=== PATIENT | female | born 1955 | race Caucasian/White ===

== ENCOUNTER 2022-12-06 20:37 | Inpatient (IN) | payer MEDICARE, OTHER ==
[~2022-12-06] VITALS: Ht 152.4 cm; Wt 68.0 kg
--- NOTE | 2022-12-06 20:59 | NUR ---
BLOOD COLLECTED AND SENT TO LAB
[2022-12-06] MEDS ORDERED: IV NS 0.9% 1,000 ML BAG IV ONE (21:00)
--- NOTE | 2022-12-06 21:06 | NUR ---
UPDATED HARDEEP ANDERSON [phone]
[2022-12-06 21:10] LABS: BASOPHILS % (AUTO) 0.4 % (0.0-2.0); EOSINOPHILS % (AUTO) 1.6 % (0.0-6.0); HEMATOCRIT 37 % (33-45); HEMOGLOBIN 12.4 g/dL (11.5-14.8); LYMPHOCYTES # (AUTO) 2.7 K/uL (0.8-4.8); LYMPHOCYTES % (AUTO) 37.6 % (20.0-44.0); MEAN CORPUSCULAR HGB CONC 33 g/dl (31.0-36.0); MEAN CORPUSCULAR VOLUME 90 fL (82-100); MONOCYTES # (AUTO) 0.4 K/uL (0.1-1.30); MONOCYTES % (AUTO) 6.1 % (2.0-12.0); NEUTROPHILS # (AUTO) 3.9 K/uL (1.8-8.9); NEUTROPHILS % (AUTO) 54.3 % (43.0-81.0); PLATELET COUNT (AUTO) 348 K/uL (150-450); RED BLOOD CELL COUNT(AUTO) 4.12 MIL/uL (4.0-5.2); WHITE BLOOD COUNT (AUTO) 7.1 K/uL (4.3-11.0)
[2022-12-06] MEDS ORDERED: ONDANSETRON HCL/PF 4 MG/2 ML VIAL ONE (21:18)
[2022-12-06] MEDS ORDERED: MECLIZINE HCL 25 MG TABLET ONE (21:19)
[2022-12-06 21:22] LABS: CALCIUM, SERUM 9.1 mg/dL (8.5-10.1); CARBON DIOXIDE 25 mmol/L (21-32); CHLORIDE 104 mmol/L (98-107); CREATININE 0.8 mg/dL (0.6-1.3); GLUCOSE 151 mg/dL (74-106); POTASSIUM 3.3 mmol/L (3.5-5.1); SODIUM SERUM 139 mmol/L (136-145); UREA NITROGEN, BLOOD 15 mg/dL (7-18)
--- NOTE | 2022-12-06 21:25 | NUR ---
MEYID SWABBED, SENT TO LAB.
--- NOTE | 2022-12-06 21:27 | NUR ---
PT TAKEN TO CT
[2022-12-06 21:28] LABS: ALANINE AMINOTRANSFERASE 20 U/L (12-78); ALBUMIN 4.1 g/dL (3.4-5.0); ALKALINE PHOSPHATASE 108 U/L (46-116); ASPARTATE AMINOTRANSFERASE 12 U/L (15-37); BILIRUBIN,TOTAL 0.2 mg/dL (0.2-1.0); LIPASE 124 U/L (73-393); TOTAL PROTEIN, SERUM 7.9 g/dL (6.4-8.2)
[2022-12-06] MEDS ORDERED: MECLIZINE HCL 12.5 MG TABLET PO ONE (21:30)
[2022-12-06] MEDS ORDERED: ONDANSETRON HCL/PF 4 MG/2 ML VIAL IV ONE (21:30)
--- NOTE | 2022-12-06 22:35 | NUR ---
DR OBRIEN ON THE PHONE WITH DR JORDAN PARKER, HOSPITALIST
--- NOTE | 2022-12-06 23:02 | NUR ---
REPORT GIVEN TO LAURE BRITT FOR FANY
--- NOTE | 2022-12-06 23:03 | NUR ---
PT ASKED IF SHE TAKES ANY MEDICATION. PT DOES NOT RECALL.
--- NOTE | 2022-12-06 23:31 | NUR ---
RN NOTE PT IS TRANSPORTED FROM ER TO THE UNIT ON A GURNEY. NO ORDERS FOR THE PT YET. NOTIFIED CHARGE NURSE, JUSTYN. LORENZA ALEJANDRA CALLED ER AND WAS NOTIFIED THAT MD ELENA ORTEGA WILL GIVE THE PT ORDER. WAITING FOR ORDERS.
[2022-12-06 23:40] VITALS: BP 141/76
--- NOTE | 2022-12-06 23:40 | NUR ---
RN ADMITTING NOTE PT IS BEING TRANSFERRED FROM ER TO THE UNIT ON THE [facility]. UPON ADMITTING, VITAL SIGNS WERE TAKEN. BP IS 141/76, TEMP IS 97.9, HR IS 58, RR IS 18, O2 SAT IS 99% ON RA. WEIGHT IS 150 LBS. PT IS ALERT AND ORIENTED, AO X 4. SHE IS [place] SPEAKING AND ABLE TO COMMUNICATE WITH SIMPLE [place]. SHE IS ON RA, TOLERATED WELL. NO S/S OF DISTRESS OR SOB. PT HAS IV ACCESS AT HER LEFT AC, #20G. SL. FLUSHED WELL WITH 10 CC OF NS. STILL WAITING FOR MD ORDER FOR ADMITTING THE PT TO TELE OR MED-SURG. ORIENTED THE PT WITH SURROUNDINGS, AND EDUCATED THE PT TO USE THE CALL LIGHT WHEN SHE NEEDS HELP. PT VERBALIZED UNDERSTANDING. SAFETY MEASURES ARE IN PLACED: BED IN LOWEST AND LOCKED POSITION; CALL LIGHT AND TABLE ARE WITHIN REACH; SIDE RAILS UP X 2. WILL CONTINUE MONITORING THE PT AND PROVIDE THE CARE PT NEEDS.
[2022-12-07] VITALS: BP 111/65
--- NOTE | 2022-12-07 01:14 | NUR ---
RN NOTE CHARGE NURSE, JUSTYN, CONTACTED MD JORDAN PARKER AND REMIND HIM THAT THE PT NEEDS ORDER FOR CARE. RECEIVED HIS REPLY "OK".
[2022-12-07] MEDS ORDERED: IV NS 0.9% 1,000 ML IV PRN (01:30)
[2022-12-07] MEDS ORDERED: ONDANSETRON HCL/PF 4 MG/2 ML VIAL IVP PRN (01:30)
[2022-12-07] MEDS ORDERED: Z GUARD REMEDY 4 OZ OINT TP PRN (01:30)
[2022-12-07] MEDS ORDERED: ACETAMINOPHEN 325 MG TABLET PO PRN (01:30)
[2022-12-07] MEDS ORDERED: MECLIZINE HCL 12.5 MG TABLET PO PRN (01:30)
[2022-12-07] MEDS ORDERED: DIAZEPAM 5 MG TABLET PO PRN (01:30)
--- NOTE | 2022-12-07 01:40 | NUR ---
MANUFACTURING ENGINEER AUTOMOTIVE NOTE RECEIVED ORDERS FOR THIS PT. 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 ON THE MONITOR, HER HEART RHYTHM IS SB WITH HR AT 50S. PT IS SLEEPING. NO S/S OF DISTRESS OR DISCOMFORT AT THIS MOMENT.
[2022-12-07 04:00] VITALS: BP 120/60
--- NOTE | 2022-12-07 06:54 | NUR ---
IT CONSULTANT CLOSING NOTE PT IS SLEEPING IN BED, EASILY BEING AROUSED. SHE IS ALERT AND ORIENTED, AO X 4. SHE IS [place] SPEAKING AND ABLE TO COMMUNICATE WITH SIMPLE [place]. SHE IS ON RA, TOLERATED WELL. NO S/S OF DISTRESS OR SOB. PT HAS IV ACCESS AT HER LEFT AC, #20G, INFUSING NS@75 ML/HR. IV SITE IS PATENT AND INTACT. PT DENIES OF HAVING PAIN OR DISCOMFORT DURING THE SHIFT. 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 PT IS ASYMPTOMATIC. SAFETY MEASURES ARE IN PLACED: BED IN LOWEST AND LOCKED POSITION; CALL LIGHT AND TABLE ARE WITHIN REACH; SIDE RAILS UP X 2. WILL ENDORSE NEXT SHIFT NURSE FOR CONTINUING PT CARE.
--- NOTE | 2022-12-07 07:45 | NUR ---
EDGE BANDING OFF BEARER OPENING NOTE RECEIVED PATIENT AWAKE, LYING IN BED. PATIENT IS ON ROOM AIR, NO S/S OF DISTRESS OR SOB, AO X4. PT HAS IV ACCESS AT HER LAC #20G WITH NS AT 75 ML/HR INFUSING WELL. PAINTING DEPARTMENT SUPERVISOR ATTACHED WITH SINUS BRADYCARDIA WITH HR OF 54. BED LOCKED IN THE LOWEST POSITION. CALL LIGHT AND TABLE IN EASY REACH. SIDE RAILS UP X2. BED ALARM ON. WILL CONTINUE TO MONITOR CLOSELY FOR ANY FANY AND ASSIST PATIENT WITH IMMEDIATE NEEDS.
[2022-12-07 08:00] VITALS: BP 126/68
[2022-12-07] MEDS ORDERED: ENOXAPARIN SODIUM 40 MG/0.4 ML DISP.SYRIN SQ SCH (09:00)
[2022-12-07] MEDS ORDERED: MULT-447 PO (10:49)
[2022-12-07] MEDS ORDERED: FOSI40TA5 PO (10:49)
[2022-12-07] MEDS ORDERED: AMLO-212 PO (10:49)
[2022-12-07] MEDS ORDERED: EMPA25TA PO (10:49)
[2022-12-07] MEDS ORDERED: METF-442 PO (10:49)
[2022-12-07] MEDS ORDERED: GEMF600T90 PO (10:49)
[2022-12-07 12:00] VITALS: BP 154/104
--- NOTE | 2022-12-07 15:30 | NUR ---
DIRECTOR OF GROUP SALES NOTE PATIENT DISCHARGE IN STABLE MEDICAL CONDITION. A/O X4. PATIENT WALKED AROUND THE UNIT BEFORE DISCHARGE, DURING AMBULATION PATIENT DENIED DIZZINESS OR ANY DISCOMFORT, PATIENT STATED "I FEEL GOOD". V/S TAKEN AND STABLE. NAME ARM BAND REMOVED. NO IV ACCESS. EXTERNAL FLY FISHING GUIDE REMOVED AND RETURNED TO TELE DESK. SKIN ASSESSMENT DONE, SKIN INTACT. ALL BELONGING CHECKED AND BELONGING LIST SINGED. HEALTH TEACHING AND DISCHARGE INSTRUCTIONS GIVEN TO PATIENT AND VERBALIZED UNDERSTANDING. INSTRUCTED PATIENT TO MAKE AN APPOINTMENT WITH HER PRIMARY DOCTOR. INSTRUCTED PATIENT INCASE OF EMERGENCY TO CALL 911 OR GO TO NEAREST ER. PATIENT LEFT UNIT VIA WHEELCHAIR WITH NO SIGNS OF DISTRESS, ACCOMPANIED BY RN TO THE LOBBY. PATIENT WENT HOME WITH HER DAUGHTER. CHARGE NURSE AWARE OF DISCHARGE.
== END 2022-12-07 15:43 | disposition home or self-care (01) | DRG 149 ==
LOC: ER 20:39 → TELE 22:52
PROVIDERS: ADMIT Internal Medicine; ATTEND Internal Medicine
DX: H81.10 Benign paroxysmal vertigo, unspecified ear (principal); E11.9 Type 2 diabetes mellitus without complications; I10 Essential (primary) hypertension; Z20.822 Contact with and (suspected) exposure to COVID-19
CPT/HCPCS: 70450-TC; 71045-TC; 80048-TC; 80076-TC; 83690-TC; 84484-TC; 85025-TC; 85730-TC; 87081-TC; A4223; C9803; G0378; J1650; J2405; J7030; J8597